=== PATIENT | male | born 1975 ===

== ENCOUNTER → 2017-02-04 | Day surgery (SDC) | payer BC ==
[2017-02-01 11:47] VITALS: BMI 25.1
[~2017-02-04] MED LIST: Lidocaine 4% (Laryng-O-Jet) Kit MM ONE; Midazolam 2 MG/2 ML VIAL ONE; Propofol 10 mg/ml Inj (20 ML) ONE
--- NOTE | 2017-02-06 08:22 | CARD ---
APPROVED REPORT EXAM: Transesophageal echocardiogram with color flow Doppler. INDICATION ASD PFO Reason For Test : Rule out cardiac source of emboli. PROCEDURE After obtaining informed consent, patient underwent transesophageal echo in the [employer]. Type of Sedation : Conscious Sedation Sedation was provided by anesthesiologist. Sedation was achieved with intravenously. The CAN was performed complications. Throughout the procedure, the blood pressure, pulse oximetry, cardiac rhythm, and rate were monitored. The patient tolerated the procedure without adverse effects. Recovery from conscious sedation was uneventful and vital signs were stable. LEFT VENTRICLE The left ventricle is normal size. The left ventricular function is normal. The left ventricular ejection fraction is within the normal range. There is normal LV segmental wall motion. No left ventricle thrombus noted on this study. There is no ventricular septal defect visualized. RIGHT VENTRICLE The right ventricle is normal size. The right ventricular systolic function is normal. ATRIA The left atrium size is normal. The right atrium size is normal. The interatrial septum is intact with no evidence for an atrial septal defect. No bubble cross over AORTIC VALVE The aortic valve is normal in structure. No aortic regurgitation is present. There is no aortic valvular stenosis. There is no aortic valvular vegetation. MITRAL VALVE The mitral valve is normal in structure. There is no evidence of mitral valve prolapse. There is no mitral valve stenosis. Mitral regurgitation is mild. TRICUSPID VALVE The tricuspid valve is normal in structure. There is mild tricuspid regurgitation. There is no tricuspid valve prolapse or vegetation. There is no tricuspid valve stenosis. PULMONIC VALVE The pulmonary valve is normal in structure. GREAT VESSELS The aortic root is normal in size. <Conclusion> The left ventricular function is normal. The left ventricular ejection fraction is within the normal range. The interatrial septum is intact with no evidence for an atrial septal defect. No bubble cross over Mitral regurgitation is mild. There is mild tricuspid regurgitation. Normal CAN study and no evidence of cardiac source of emboli found
== END | disposition home or self-care (01) ==
LOC: C.CATHLAB 06:56
PROVIDERS: ATTEND Internal Medicine Cardiovascular Disease
DX: I51.0 Cardiac septal defect, acquired (principal)
CPT/HCPCS: 93312; J2001; J2250; J2704

== ENCOUNTER 2018-04-15 10:41 | Emergency (ER) | payer BC ==
[2018-04-15 10:41] VITALS: BMI 25.1
[2018-04-15 10:51] VITALS: BP 155/90; PULSE 78; RESP 18; TEMP 97.6; O2SAT 98
--- NOTE | 2018-04-15 11:35 | C.PDOC ---
History Of Present Illness 43 year old male with a history of diabetes presents to the ED for evaluation of left ear hearing loss for 2 days. The patient reports mild ringing in the left ear with no pain. Denies fever, chills, trauma, discharge, and any other associated symptoms. Time Seen by Provider: 04/15/18 11:07 Chief Complaint (Nursing): ENT Problem History Per: Patient History/Exam Limitations: None Past Medical History Reviewed: Historical Data, Nursing Documentation, Vital Signs Vital Signs: Last Vital Signs Temp 97.6 F 04/15/18 10:49 Pulse 78 04/15/18 10:49 Resp 18 04/15/18 10:49 BP 155/90 H 04/15/18 10:49 Pulse Ox 98 04/15/18 10:49 - Medical History PMH: HTN Denies: Chronic Kidney Disease Family History: States: Unknown Family Hx - Social History Hx Alcohol Use: No Hx Substance Use: No Review Of Systems Except As Marked, All Systems Reviewed And Found Negative. ENT: Positive for: Other (left ear hearing loss. ) Physical Exam - Physical Exam Appears: Non-toxic, No Acute Distress Skin: Normal Color, Warm, Dry Head: Atraumatic, Normacephalic, Other ((-) no mastoid tenderness.) Eye(s): bilateral: Normal Inspection, PERRL, EOMI, Other (Clear TM. ) Nose: Normal Oral Mucosa: Moist Neck: Supple Chest: Symmetrical Cardiovascular: Rhythm Regular, No Murmur Respiratory: Normal Breath Sounds, No Rales, No Rhonchi, No Wheezing Gastrointestinal/Abdominal: Normal Exam, Soft, No Tenderness Extremity: Bilateral: Atraumatic, Normal Color And Temperature, Normal ROM Neurological/Psych: Oriented x3, Normal Speech, Normal Cranial Nerves, Normal Motor, Normal Sensation, Normal Reflexes ED Course And Treatment O2 Sat by Pulse Oximetry: 98 (RA) Pulse Ox Interpretation: Normal Medical Decision Making Medical Decision Making: Assessment: auditory dysfunction Plan: -POC Glucose Progress/Update: Patient stable for discharge home. Follow up with ENT Dr. Palomares within 1-2 days. Disposition Counseled Patient/Family Regarding: Diagnosis, Need For Followup - Disposition Referrals: Tony Palomares MD [Staff Provider] - Disposition: HOME/ ROUTINE Disposition Time: 11:33 Condition: STABLE Additional Instructions: follow up with ENT within 2 days call to make an appointment today return to ER if symptoms worsens or progress Instructions: Eustachian Tube Problems Forms: [facility] (Palestinian), General Discharge Instructions - Clinical Impression Clinical Impression: Auditory complaints, Eustachian tube dysfunction - Scribe Statement The provider has reviewed the documentation as recorded by the Scribe (Marissa Wright) Provider Attestation: All medical record entries made by the Scribe were at my direction and personally dictated by me. I have reviewed the chart and agree that the record accurately reflects my personal performance of the history, physical exam, medical decision making, and the department course for this patient. I have also personally directed, reviewed, and agree with the discharge instructions and disposition.
== END 2018-04-15 11:44 | disposition home or self-care (01) ==
LOC: C.ER 10:41
DX: H69.92 Unspecified Eustachian tube disorder, left ear (principal); E11.9 Type 2 diabetes mellitus without complications